=== PATIENT | female | born 1985 | race Caucasian/White ===

== ENCOUNTER 2018-04-17 18:03 | Emergency (ER) | payer SELFPAY ==
[~2018-04-17] VITALS: Ht 154.9 cm; Wt 120.2 kg
[~2018-04-17 18:03] MED LIST: [UNRECOGNIZED DRUG - REMARK]
[2018-04-17] MEDS ORDERED: HYDROCODONE 7.5MG/IBUPROFEN 200MG TAB PO PRN (18:30)
[2018-04-17] MEDS ORDERED: HYDROCODONE/APAP 10MG-325MG TAB PO ONE (18:45)
== END 2018-04-17 19:27 | disposition home or self-care (01) ==
LOC: ER 18:03
DX: R21 Rash and other nonspecific skin eruption (principal)
CPT/HCPCS: 99283

== ENCOUNTER 2018-07-07 17:10 | Inpatient (IN) | payer SELFPAY ==
[~2018-07-07] VITALS: Ht 154.9 cm; Wt 120.2 kg
--- OUTSIDE RECORDS SUMMARY | 2018-07-07 17:13 | XMS REPORT ---
[facility] Address Unknown Phone Unavailable Care Team Providers Care Thread Marker Name Role Phone Unavailable Unavailable Payers Payer Name Policy Type Policy Number Effective Date Expiration Date Problems This patient has no known problems. Allergies, Adverse Reactions, Alerts Allergy Name Allergy Type Status Severity Reaction(s) Onset Date Inactive Date Treating Clinician Comments No Known Allergies DA Active U 2018-04-01 00:00:00 Medications This patient has no known medications. Encounters Start Date/Time End Date/Time Encounter Type Admission Type Attending Clinicians Care Facility Care Department Encounter ID 2017-12-30 00:00:00 2017-12-30 00:00:[address] [facility] [id number] 2017-12-20 19:01:43 2017-12-20 19:01:[address] [facility] [id number] 2017-12-20 16:50:07 2017-12-20 16:50:07 Emergency [facility] [id number] 2017-12-20 14:03:43 2017-12-20 14:03:[address] [facility] [id number]
--- OUTSIDE RECORDS SUMMARY | 2018-07-07 17:13 | XMS REPORT | Clinical Summary ---
Author Author [facility] Organization [facility] Address Unknown Phone Unavailable Care Team Providers Care Senior Environmental Consultant Name Role Phone PCP Unavailable Allergies No Known Allergies Current Medications Prescription Sig. Disp. Refills Start End Date Status Date acetaminophen-codeine Take 1 tablet by mouth 15 tablet 0 12/21/19 Active (TYLENOL/CODEINE #3) every 4 hours as needed 18 300-30 mg per for Pain. tabletIndications: Left arm pain Active Problems Problem Noted Date Closed displaced fracture of distal pole of scaphoid of left wrist with 12/30/2017 delayed healing Encounters Date Type Specialty Care Team Description 12/30/2017 Office Visit Orthopedics Mir Ritchie MD Closed displaced fracture of distal pole of scaphoid of left wrist with delayed healing (Primary Dx); NO SHOW ENCOUNTER 12/20/2017 Emergency Emergency Medicine Tonie Negrete MD Left arm pain (Primary Dx); Closed nondisplaced fracture of proximal third of scaphoid bone of left wrist, initial encounter after 07/06/2017 Social History Tobacco Use Types Packs/Day Years Used Date Never Assessed Sex Assigned at Date Recorded Not on file Last Filed Vital Signs Vital Sign Reading Time Taken Blood Pressure 139/90 12/20/2017 8:00 PM CDT Pulse 92 12/20/2017 8:00 PM CDT Temperature 36.9 C (98.4 F) 12/20/2017 8:00 PM CDT Respiratory Rate 18 12/20/2017 8:00 PM CDT Oxygen Saturation 97% 12/20/2017 8:00 PM CDT Inhaled Oxygen - - Concentration Weight - - Height - - Body Mass Index - - Plan of Treatment Health Maintenance Due Date Last Done Comments Cervical Cancer Scrn (3 2007 Yrs) IMM Influenza Seasonal 06/16/2018Jun to November (>/=19 yrs) Procedures Procedure Name Priority Date/Time Associated Diagnosis Comments XRAY WRIST 3 VIEWS - STAT 12/20/2017 Left arm pain Results for this ROUTINE 7:13 PM CDT procedure are in the results section. XRAY HAND 3 VIEWS MIN STAT 12/20/2017 Left arm pain Results for this 2:26 PM CDT procedure are in the results section. XRAY FOREARM 2 VIEWS MIN STAT 12/20/2017 Left arm pain Results for this 2:26 PM CDT procedure are in the results section. after 07/06/2017 Results * XRAY WRIST 3 VIEWS - ROUTINE (12/20/2017 7:13 PM) Impressions Performed At IMPRESSION: SMS Status post splinting for age indeterminant, likely chronic fracture through proximal scaphoid pole. Stable alignment. If the report is "FINALIZED" it indicates that the attending/staff radiologist has reviewed the images and agrees with the resident's interpretation. Dictated By: Mayco Hernandez MD, 12/20/2017 7:54 PM I have reviewed the study and agree with the findings in this report. Signed By: Austin Singh, 12/20/2017 8:49 PM Narrative Performed At EXAM: Left XRAY WRIST 3 VIEWS - ROUTINE [facility] HISTORY:Scaphoid fracture COMPARISON: Same day hand and wrist radiographs. FINDINGS: See impression. Procedure Note Interface, Rad/Mammog In - 12/20/2017 8:54 PM CDT EXAM: Left XRAY WRIST 3 VIEWS - ROUTINE HISTORY: Scaphoid fracture COMPARISON: Same day hand and wrist radiographs. FINDINGS: See impression. IMPRESSION IMPRESSION: Status post splinting for age indeterminant, likely chronic fracture through proximal scaphoid pole. Stable alignment. If the report is "FINALIZED" it indicates that the attending/staff radiologist has reviewed the images and agrees with the resident's interpretation. Dictated By: Mayco Hernandez MD, 12/20/2017 7:54 PM I have reviewed the study and agree with the findings in this report. Signed By: Austin Singh, 12/20/2017 8:49 PM Performing Organization Address City/State/Zipcode Phone Number SMS * XRAY HAND 3 VIEWS MIN (12/20/2017 2:26 PM) Impressions Performed At IMPRESSION: [facility] 1.No acute radiographic abnormality. 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 Dictated By: Segundo Garcia MD, 12/20/2017 3:35 PM I have reviewed the study and agree with the findings in this report. Signed By: Bob Taylor DO, 12/20/2017 4:36 PM Narrative Performed At Left hand - 3 view(s) [facility] Left forearm 2 views. HISTORY:L arm pain COMPARISON: None DISCUSSION: Bone: Ulnar minus variance. No acute displaced fracture.Small bone island at the distal aspect of the fifth metacarpal bone. Focal linear lucency about the proximal pole of the scaphoid bone reveals a corticated minimally displaced proximal pole fracture. The proximal pole is not sclerotic or fragmented. Joints: The joint spaces are well-maintained. Soft tissues: The soft tissues appear unremarkable. Procedure Note Interface, Rad/Mammog In - 12/20/2017 4:41 PM CDT Left hand - 3 view(s) Left forearm 2 views. HISTORY: L arm pain COMPARISON: None DISCUSSION: Bone: Ulnar minus variance. No acute displaced fracture. Small bone island at the distal aspect of the fifth metacarpal bone. Focal linear lucency about the proximal pole of the scaphoid bone reveals a corticated minimally displaced proximal pole fracture. The proximal pole is not sclerotic or fragmented. Joints: The joint spaces are well-maintained. Soft tissues: The soft tissues appear unremarkable. IMPRESSION IMPRESSION: 1. No acute radiographic abnormality. 2. 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 Dictated By: Segundo Garcia MD, 12/20/2017 3:35 PM I have reviewed the study and agree with the findings in this report. Signed By: Bob Taylor DO, 12/20/2017 4:36 PM Performing Organization Address City/State/Zipcode Phone Number SMS * XRAY FOREARM 2 VIEWS MIN (12/20/2017 2:26 PM) Impressions Performed At IMPRESSION: [facility] 1.No acute radiographic abnormality. 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 Dictated By: Segundo Garcia MD, 12/20/2017 3:35 PM I have reviewed the study and agree with the findings in this report. Signed By: Bob Taylor DO, 12/20/2017 4:36 PM Narrative Performed At Left hand - 3 view(s) [facility] Left forearm 2 views. HISTORY:L arm pain COMPARISON: None DISCUSSION: Bone: Ulnar minus variance. No acute displaced fracture.Small bone island at the distal aspect of the fifth metacarpal bone. Focal linear lucency about the proximal pole of the scaphoid bone reveals a corticated minimally displaced proximal pole fracture. The proximal pole is not sclerotic or fragmented. Joints: The joint spaces are well-maintained. Soft tissues: The soft tissues appear unremarkable. Procedure Note Interface, Rad/Mammog In - 12/20/2017 4:41 PM CDT Left hand - 3 view(s) Left forearm 2 views. HISTORY: L arm pain COMPARISON: None DISCUSSION: Bone: Ulnar minus variance. No acute displaced fracture. Small bone island at the distal aspect of the fifth metacarpal bone. Focal linear lucency about the proximal pole of the scaphoid bone reveals a corticated minimally displaced proximal pole fracture. The proximal pole is not sclerotic or fragmented. Joints: The joint spaces are well-maintained. Soft tissues: The soft tissues appear unremarkable. IMPRESSION IMPRESSION: 1. No acute radiographic abnormality. 2. 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 Dictated By: Segundo Garcia MD, 12/20/2017 3:35 PM I have reviewed the study and agree with the findings in this report. Signed By: Bob Taylor DO, 12/20/2017 4:36 PM Performing Organization Address City/State/Zipcode Phone Number [facility] after 07/06/2017
[2018-07-07] MEDS ORDERED: ONDANSETRON HCL INJ 2 MG/ML VIAL IV STA (17:27)
[2018-07-07] MEDS ORDERED: CLINDAMYCIN PHOS 900MG/ 50ML 50 ML IV STA (17:27)
[2018-07-07] MEDS ORDERED: SODIUM CHLORIDE 0.9% 1000ML 1,000 ML IV STA (17:27)
[2018-07-07] MEDS ORDERED: MORPHINE SULFATE INJ 4 MG/ML INJ IV STA (17:27)
[2018-07-07 17:53] LABS: CLARITY,URINE SL CLOUDY (CLEAR); COLOR,URINE YELLOW (YELLOW); LEUKOCYTE ESTERASE ,URINE NEGATIVE (NEGATIVE); NITRITE,URINE NEGATIVE (NEGATIVE); PROTEIN,URINE DIPSTICK NEGATIVE (NEGATIVE)
[2018-07-07 17:54] LABS: BILIRUBIN,URINE NEGATIVE (NEGATIVE); KETONES,URINE NEGATIVE (NEGATIVE); PREGNANCY TEST, URINE NEGATIVE (NEGATIVE); URINE UROBILINOGEN 0.2 mg/dL (0.2 - 1)
[2018-07-07] MEDS ORDERED: HYDRALAZINE HCL 10 MG TAB PO ONE (18:00)
[2018-07-07] MEDS ORDERED: INSULIN REGULAR, HUMAN 100 UNIT/1 ML 3ML VIAL IV ONE ×2 (18:00→22:15)
[2018-07-07 18:14] LABS: BACTERIA,URINE FEW /HPF; EPITHELIAL CELLS,URINE MODERATE /LPF; RBC,URINE 0-5 /HPF (0-5)
[2018-07-07 18:15] LABS: BASOPHILS % 0.3 % (0.0-1.0); EOSINOPHILS # (AUTO) 0.2 (0.0-0.4); EOSINOPHILS % 1.6 % (0.0-6.0); HEMATOCRIT 42.2 % (34.2-44.1); HEMOGLOBIN 15.3 g/dL (12.0-16.0); LYMPHOCYTES # (AUTO) 1.5 (1.0-3.2); LYMPHOCYTES % 15.7 % (18.0-39.1); MEAN CORPUSCULAR HEMOGLOBIN 31.6 pg (28-32); MEAN CORPUSCULAR HGB CONC 36.3 g/dL (31-35); MEAN CORPUSCULAR VOLUME 87.2 fL (81-99); MONOCYTES # (AUTO) 0.6 (0.2-0.8); MONOCYTES % 6.4 % (4.4-11.3); NEUTROPHILS # (AUTO) 7.3 (2.1-6.9); NEUTROPHILS % 75.6 % (38.7-80.0); PLATELET COUNT 238 x10e3/uL (140-360); RED BLOOD COUNT 4.84 x10e6/uL (3.6-5.1); RED CELL DISTRIBUTION WIDTH 12.2 % (11.7-14.4)
[2018-07-07 18:50] LABS: ALANINE AMINOTRANSFERASE 14 IU/L (0-55); ALBUMIN 3.7 g/dL (3.5-5.0); ALKALINE PHOSPHATASE 63 IU/L (40-150); ANION GAP 20.1 mmol/L (8-16); BLOOD UREA NITROGEN 8 mg/dL (7-26); BUN/CREATININE RATIO 8 (6-25); CALCIUM 9.8 mg/dL (8.4-10.2); CARBON DIOXIDE 22 mmol/L (22-29); CHLORIDE 95 mmol/L (98-107); CREATININE, SERUM 0.96 mg/dL (0.57-1.11); EST GLOMERULAR FILTRATION RATE > 60 ML/MIN (60-); POTASSIUM 4.1 mmol/L (3.5-5.1); SODIUM 133 mmol/L (136-145)
[2018-07-07 18:51] LABS: GLUCOSE 545 mg/dL (74-118)
[2018-07-07] MEDS ORDERED: DEXTROSE 5%/0.45% SOD CHL 1,000 ML IV SCH (18:57)
[2018-07-07] MEDS ORDERED: MAGNESIUM SULF 1GRAM/DEXTROSE 100 ML IV PRN (19:00)
[2018-07-07] MEDS ORDERED: POTASSIUM CHLORIDE 20MEQ/100ML 200 ML IV PRN (19:00)
[2018-07-07] MEDS ORDERED: INSULIN DETEMIR 100 UNIT/ML PEN SQ PRN (19:00)
[2018-07-07] MEDS ORDERED: SODIUM CHLORIDE 0.9% 1000ML 1,000 ML IV SCH (19:00)
[2018-07-07] MEDS ORDERED: INSULIN REGULAR, HUMAN 3ML VL 100 UNIT in SODIUM CHLORIDE 0.9% 100 ML IV SCH ×2 (19:00)
[2018-07-07] MEDS ORDERED: INSULIN REGULAR, HUMAN 100 UNIT/1 ML 3ML VIAL IV STA (22:08)
[2018-07-07] MEDS ORDERED: PIPER-TAZ 3.375 GM 50 ML IV SCH (22:15)
[2018-07-07] MEDS ORDERED: DEXTROSE 50% SYRINGE 50 ML IV PRN (22:30)
--- OUTSIDE RECORDS SUMMARY | 2018-07-07 23:38 | XMS REPORT | Clinical Summary ---
Author Author [facility] Organization [facility] Address Unknown Phone Unavailable Care Team Providers Care Safety Aide Name Role Phone PCP Unavailable Allergies No [...] Performed At Left hand - 3 view(s) [facility] Left forearm 2 views. HISTORY:L arm [...] (12/20/2017 2:26 PM) Impressions Performed At IMPRESSION: [facility] 1.No acute radiographic abnormality. 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 Dictated By: Segundo Garcia MD, 12/20/2017 3:35 PM I have reviewed the study and agree with the findings in this report. Signed By: Bob Taylor DO, 12/20/2017 4:36 PM Narrative Performed At Left hand - 3 view(s) [facility] Left forearm 2 views. HISTORY:L arm [...] PM Performing Organization Address City/State/Zipcode Phone Number [facility] after 07/06/2017
[2018-07-07] MEDS ORDERED: ONDANSETRON HCL INJ 2 MG/ML VIAL IV PRN (23:45)
[2018-07-08] MEDS: SODIUM CHLORIDE 0.9% 1000ML 1,000 ML IV SCH ×5 (00:40→09:03)
[2018-07-08] MEDS: MORPHINE SULFATE 2 MG/ML SYR IV PRN ×2 (01:18→08:00)
[2018-07-08 05:52] LABS: ANION GAP 11.9 mmol/L (8-16); BLOOD UREA NITROGEN 8 mg/dL (7-26); BUN/CREATININE RATIO 11 (6-25); CALCIUM 8.5 mg/dL (8.4-10.2); CARBON DIOXIDE 26 mmol/L (22-29); CHLORIDE 98 mmol/L (98-107); CREATININE, SERUM 0.73 mg/dL (0.57-1.11); EST GLOMERULAR FILTRATION RATE > 60 ML/MIN (60-); GLUCOSE 342 mg/dL (74-118); MAGNESIUM 1.5 MG/DL (1.3-2.1); PHOSPHORUS 3.4 MG/DL (2.3-4.7); POTASSIUM 3.9 mmol/L (3.5-5.1); SODIUM 132 mmol/L (136-145)
[2018-07-08] MEDS ORDERED: CLINDAMYCIN PHOS 900MG/ 50ML 50 ML IV SCH (06:00)
--- NOTE | 2018-07-08 06:44 | History and Physical ---
PRIMARY CARE PHYSICIAN: None CHIEF COMPLAINT: Scalp pain. HISTORY OF PRESENT ILLNESS: This is a 32-year-old woman with a history of diabetes mellitus, type 2, which she admits is poorly controlled, who has a history of left leg abscess, now developing swelling and pain in the mid-parietal scalp region. The patient has a suspected of an abscess of the skin and admitted to the hospital. Here she was found to have abscess. She underwent incision and drainage in the emergency room with packing and started on IV antibiotics. She is admitted for further evaluation and management. PAST MEDICAL HISTORY: Diabetes mellitus, type 2, morbid obesity, diabetes related left leg abscess, asthma, hypertension. PAST SURGICAL HISTORY: and hiatal hernia. ALLERGIES: PER ELECTRONIC MEDICAL RECORDS. FAMILY HISTORY/SOCIAL HISTORY: Patient is . She has 2 children. No alcohol, illicits or cigarettes. MEDICATIONS: Per electronic medical records. REVIEW OF SYSTEMS: Denies any dizziness, chest pain, shortness of breath, fever, chills, sweats, nausea, vomiting, diarrhea, or leg pain. PHYSICAL EXAMINATION VITAL SIGNS: Have been reviewed. GENERAL: A tired-appearing woman resting in bed. HEENT: Anicteric. She has a mid-parietal scalp region with packing. There is tenderness around the region and erythema and some edema. CARDIOVASCULAR: Normal S1 and S2. LUNGS: Moderate breath sounds. ABDOMEN: Soft and nondistended. She has mild tenderness in the epigastrium. EXTREMITIES: She has trace edema of the bilateral lower extremities. SKIN: Dry. PSYCHIATRIC: Flat affect. NEUROLOGICAL: Alert and oriented times 3. Moving all extremities. LABS: Reviewed. MEDICATIONS: Reviewed. ASSESSMENT: A 32-year-old woman with: 1. Diabetes related abscess. 2. Abscess of the scalp, parietal region. 3. Diabetes mellitus, type 2. 4. Super morbid obesity: Body mass index is 50.1. 5. Scalp pain. PLAN 1. Will continue IV Zosyn and clindamycin. 2. The patient is status post incision and drainage of the scalp wound. 3. Follow up cultures. 4. Pain control with morphine. 5. Continue IV fluids. 6. Obtain hemoglobin A1c and lipid panel. 7. Resume insulin regimen. 8. Diabetic diet. 9. Use SCD for DVT prophylaxis and Pepcid. 10. Disposition. Monitor closely. Job#: [id number] MYNOR
[2018-07-08 06:57] LABS: CHOL/HDL RATIO 5.1 (3.0-3.6)
[2018-07-08] MEDS ORDERED: INSULIN REGULAR, HUMAN 100 UNIT/1 ML 3ML VIAL SQ SCH (07:30)
[2018-07-08] MEDS ORDERED: FAMOTIDINE 20 MG TAB PO SCH (07:30)
[2018-07-08 10:13] VITALS: BP 153/83
== END 2018-07-08 13:00 | disposition left against medical advice (07) | DRG 638 ==
LOC: ER 17:10 → ERHOLD 23:35
PROVIDERS: ADMIT Internal Medicine; ATTEND Internal Medicine
PROC: 0H90XZZ Drainage of Scalp Skin, External Approach (ICD-10-PCS; principal; 2018-07-07)
DX: E11.628 Type 2 diabetes mellitus with other skin complications (principal); L02.811 Cutaneous abscess of head [any part, except face]; Z68.43 Body mass index [BMI] 50.0-59.9, adult; E87.1 Hypo-osmolality and hyponatremia; E11.65 Type 2 diabetes mellitus with hyperglycemia; E11.649 Type 2 diabetes mellitus with hypoglycemia without coma; E66.01 Morbid (severe) obesity due to excess calories; Z91.14 Patient's other noncompliance with medication regimen; I10 Essential (primary) hypertension; J45.909 Unspecified asthma, uncomplicated; Z83.3 Family history of diabetes mellitus; Z82.49 Family history of ischemic heart disease and other diseases of the circulatory system; E87.8 Other disorders of electrolyte and fluid balance, not elsewhere classified
CPT/HCPCS: 36415; 80048; 80053; 80061; 81001; 81025; 82948; 83036; 83605; 83735; 84100; 85025; 85651; 87040; 93005; 99284; J2270; J2405; J2543; J7030; J7050